=== PATIENT | female | born 1970 | race Caucasian/White ===

== ENCOUNTER 2020-10-21 21:02 | Emergency (ER) | payer OTHER ==
[~2020-10-21] VITALS: Ht 165.1 cm; Wt 118.2 kg
[2020-10-21] MEDS ORDERED: NAPROXEN500 MG PO (23:35)
[2020-10-21] MEDS ORDERED: CYCLOBENZAPRINE10 MG PO (23:35)
[2020-10-21 23:54] VITALS: BP 144/79
== END 2020-10-21 23:53 | disposition home or self-care (01) | DRG 552 ==
LOC: ED 21:02
DX: S13.4XXA Sprain of ligaments of cervical spine, initial encounter (principal); I10 Essential (primary) hypertension; E03.9 Hypothyroidism, unspecified; V49.50XA Passenger injured in collision with unspecified motor vehicles in traffic accident, initial encounter